=== PATIENT | female | born 1995 | race Caucasian/White ===

== ENCOUNTER 2018-06-08 22:56 | Emergency (ER) | payer OTHER, SELFPAY ==
--- NOTE | 2018-06-08 23:00 | DI.RAD.S_ITS ---
PROCEDURE: XR ANKLE LT MIN 3V INDICATIONS: 23 year-old woman with left ankle pain. TECHNIQUE: 3 views of the ankle were acquired. COMPARISON: None. FINDINGS: Bones: No fractures or dislocations. Ankle mortise is normally aligned. No suspicious bony lesions. Soft tissues: No tibiotalar joint effusion. Achilles tendon appears normal. Soft tissue swelling over the lateral malleolus. IMPRESSION: No fracture or dislocation. Dictated by: Hoda Shay M.D. on 06/09/2018 at 8:31 Approved by: Hoda Shay M.D. on 06/09/2018 at 8:33
[2018-06-08 23:03] VITALS: BP 134/81; PULSE 118; RESP 16; TEMP 37; O2SAT 100
--- NOTE | 2018-06-08 23:27 | ED_ITS ---
HPI - Extremity Injury (Lower) General Chief Complaint: Extremity Injury, Lower Stated Complaint: LEFT ANKLE INJURY Time Seen by Provider: 06/08/18 23:18 Source: patient Mode of arrival: wheelchair History of Present Illness HPI Narrative: This is a 23-year-old female comes to the emergency department with complaint of left ankle pain. Patient states yesterday she got out of the car, she was disoriented because she had been sleeping in the car and thought she had planted her foot firmly but rolled it. Her description she inverted the ankle. She states that she has continued to have pain for the last 24 hr and has pain with weight-bearing. She has had swelling, no bruising. No numbness or tingling of the extremity. She has had surgery on her right foot but has not had any prior issues or surgeries on the left. MD complaint: ankle injury Onset (ago): day(s) (1) Injury: Left: ankle Type of Injury: inversion Place: other (Getting out of car) Severity: severe Relieving factors: nothing (Tylenol) Exacerbating factors: weight bearing and movement Associated symptoms: swelling and unable to bear weight Related Data Home Medications Medication Instructions Recorded Confirmed alprazolam 1 mg PO #0 08/08/17 escitalopram oxalate [Lexapro] 10 mg PO QDAY #0 08/08/17 levothyroxine #0 08/08/17 propranolol 25 mg PO QDAY #0 08/08/17 Previous Rx's Medication Instructions Recorded tramadol 50 mg PO Q6H #5 tab 06/08/18 Allergies Allergy/AdvReac Type Severity Reaction Status Date / Time buspirone [BUSPIRONE] Allergy Unknown Verified 06/08/18 23:41 ibuprofen [IBUPROFEN] Allergy Unknown Verified 06/08/18 23:41 Review of Systems Review of Systems All systems reviewed & are unremarkable except as noted in HPI and below Musculoskeletal Reports as per HPI, Denies deformity, Reports joint swelling (Left ankle), Reports limited range of motion, Denies muscle weakness, Denies numbness, Denies tingling and Reports other (Left ankle pain) Integumentary/Breasts Denies rash and Denies unusual bruising Neurologic Denies numbness and Denies tingling [facility] Surgical History Status post right foot surgery (Acute) Exam Initial Vital Signs Initial Vital Signs: Vital Signs Temperature 98.6 F 06/08/18 23:03 Pulse Rate 118 H 06/08/18 23:03 Respiratory Rate 16 06/08/18 23:03 Blood Pressure 134/81 06/08/18 23:03 Pulse Oximetry 100 06/08/18 23:03 Skin General: No ecchymosis and No erythema Extrem Right lower extremity: normal to inspection, full ROM and normal capillary refill Left lower extremity: edema (Mild) and ankle Details: abnormal to inspection ( Mild swelling), tenderness (Tenderness with palpation over the lateral malleolus ), swelling and abnormal ROM (Decreased flexion extension) Details: pain with active ROM; edema; no cyanosis Course Orders Ordered: ED Orders 06/08/18 23:00 XR ankle LT min 3V Stat Discontinued Medications Tramadol HCl (Ultram 50mg Prepack) 1 bottle MIS SEEINSTR ONE Stop: 06/08/18 23:33 Last Admin: 06/08/18 23:42 Dose: 1 bottle Vital Signs - 8 hr 06/08/18 23:03 Temperature 98.6 F Pulse Rate 118 H Respiratory Rate 16 Blood Pressure 134/81 Pulse Oximetry [address] [facility] - Extremity Injury (Lower) Imaging Data Ankle x-ray: Attestation: I personally reviewed and interpreted this imaging study as follows: My impression: Left ankle shows no acute fracture. [facility] Narrative Medical decision making narrative: Patient treated ankle sprain, x-ray shows no acute fracture. Patient has tenderness over the lateral malleolus and pain with weight-bearing. Patient was given compression bandage here in the emergency department and wrapped. She was given crutches with teaching for nonweightbearing. Given a prescription short turn for tramadol and encouraged to take Tylenol with or instead of. Patient cannot take NSAIDs secondary to what she describes as anaphylaxis. We did discuss that she is continuing to have symptoms at 10-14 days she will need repeat imaging in re-evaluation. Discharge Plan Departure Patient Disposition: Home Clinical Impression: Left ankle sprain Discharge Date/Time: 06/08/18 23:48 Interventions: ED Discharge Assessment Last Done: 06/08/18 23:47 Instructions: Ankle Sprain Activity Restrictions/Additional Instructions: Follow-up with primary care in the next 10-14 days if your symptoms are not resolving. Continue to use ice as tolerated, rest and elevate your lower extremity as much as a you're able. You may weightbear as tolerated. Take pain medications as prescribed, these medications can make you sleepy do not drive, perform hazards activities or make any major decisions while taking them. You may take tylenol 1000mg every 8 hours as needed. You may take along with tramadol as needed. Prescriptions: New tramadol 50 mg tablet 50 mg PO Q6H Qty: 5 RF: 0 No Action levothyroxine 50 MCG tablet Qty: 0 RF: 0 propranolol 20 MG tablet 25 mg PO QDAY Qty: 0 RF: 0 escitalopram oxalate [Lexapro] 10 MG tablet 10 mg PO QDAY Qty: 0 RF: 0 alprazolam 1 MG tablet extended release 24 hr 1 mg PO Qty: 0 RF: 0
[2018-06-08] MEDS: TRAMADOL 50 MG PREPACK 1 BOTTLE MISC (23:42)
== END 2018-06-08 23:48 | disposition home or self-care (01) ==
PROVIDERS: Emergency Provider Emergency Medicine
DX: S93.402A Sprain of unspecified ligament of left ankle, initial encounter (principal); W18.43XA Slipping, tripping and stumbling without falling due to stepping from one level to another, initial encounter
CPT/HCPCS: 73610; 99282; 99283

== ENCOUNTER 2019-02-03 22:57 | Emergency (ER) | payer OTHER, SELFPAY ==
[2019-02-03 23:02] VITALS: PULSE 133; RESP 18; TEMP 36.6; O2SAT 95; BMI 28.1
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
--- NOTE | 2019-02-03 23:48 | DI.CT.S_ITS ---
PROCEDURE: CT ABDOMEN PELVIS W CON INDICATIONS: severe lower abdominal pain and back pain TECHNIQUE: After the administration of intravenous contrast, 5 mm thick sections acquired from the diaphragm to the symphysis. 5 mm coronal and sagittal reformats were acquired. For radiation dose reduction, the following was used: automated exposure control, adjustment of mA and/or kV according to patient size. COMPARISON: [facility], CT, ABDOMEN/PELVIS WITH CONTRAST, 08/08/2017, 19:14. FINDINGS: Image quality: Excellent. ABDOMEN: Lung bases: Mild scattered atelectasis, which is incompletely visualized. If felt clinically necessary, a dedicated PA and lateral chest radiographs could be obtained Solid organs: Diffuse fatty infiltration of the liver. Gallbladder negative. Biliary system is non dilated. Pancreas enhances normally. Spleen is normal in size and enhancement. No adrenal nodules. Kidneys demonstrate normal size and enhancement, without hydronephrosis. Peritoneum and bowel: Bowel loops demonstrate normal wall thickness and caliber. No free fluid or air. The appendix is within normal limits Nodes and vessels: No retroperitoneal or mesenteric adenopathy by size criteria. Aorta and inferior vena cava are normal in size. Miscellaneous: No ventral hernias. PELVIS: Genitourinary: Bladder wall thickness is normal. Miscellaneous: No inguinal hernias or adenopathy. Bones: No suspicious bony lesions. No vertebral body compression fractures. IMPRESSION: Mild scattered atelectasis as above Hepatic steatosis. No acute intra-abdominal or intrapelvic process. Normal appendix. Dictated by: Kiel Allen M.D. on 02/04/2019 at 8:02 Approved by: Kiel Allen M.D. on 02/04/2019 at 8:06
[2019-02-03 23:51] VITALS: BP 124/64; PULSE 108; RESP 16
[2019-02-03 23:55] LABS: Urine Amphetamines Negative (Negative); Urine Barbiturates Negative (Negative); Urine Benzodiazepines Negative (Negative); Urine Cocaine Negative (Negative); Urine MDMA Negative (Negative); Urine Methadone Negative (Negative); Urine Methamphetamines Negative (Negative); Urine Morphine/Opi cutoff 2000 Negative (Negative); Urine Oxycodone Negative (Negative); Urine Phencyclidine Negative (Negative); Urine Tetrahydrocannabinol Negative (Negative); Urine Tricyclic Antidepressant Negative (Negative)
[2019-02-04 00:34] LABS: Lactate (Lactic Acid) 1.7 mmol/L (0.7-2.1); Lipase 91 U/L (23-300)
[2019-02-04 00:35] LABS: Alanine Aminotransferase 83 IU/L (9-52); Albumin 4.7 g/dL (3.5-5.0); Albumin Globulin Ratio 1.5 (1.0-2.8); Alkaline Phosphatase 45 U/L (38-126); Aspartate Aminotransferase 57 IU/L (14-36); BUN Creatinine Ratio 11.3 (6-22); Bilirubin Total 0.2 mg/dL (0.2-1.3); Blood Urea Nitrogen 9 mg/dL (7-17); Calcium 9.5 mg/dL (8.4-10.2); Carbon Dioxide 25 mmol/L (22-32); Chloride 108 mmol/L (98-107); Estimated Glomerular Filt Rate > 60.0 mL/min (>60); Globulin 3.1 g/dL (1.7-4.1); Glucose 97 mg/dL (70-100); HEMOLYSIS < 15 (0-50); Potassium 3.9 mmol/L (3.4-5.1); Sodium 147 mmol/L (137-145); Total Protein 7.8 g/dL (6.3-8.2)
[2019-02-04 00:48] LABS: Add Manual Diff / Slide Review NO; Basophils Absolute Auto 0 /uL (0-100); Basophils Percent Auto 0.2 % (0-2); Eosinophils Absolute Auto 100 /uL (0-450); Eosinophils Percent Auto 1.1 % (2-4); Hematocrit 42.2 % (36-46); Hemoglobin 14.3 g/dL (12.0-16.0); Lymphocytes Absolute Auto 2000 /uL (1100-4500); Lymphocytes Percent Auto 29.3 % (25-40); Mean Corpuscular HGB Conc 33.8 % (30-36); Mean Corpuscular Hemoglobin 32.2 PG (26-34); Mean Corpuscular Volume 95.4 fL (80-100); Monocytes Absolute Auto 500 /uL (0-900); Monocytes Percent Auto 6.8 % (3-14); Neutrophils Absolute Auto 4200 /uL (1500-7000); Neutrophils Percent Auto 62.6 % (50-75); Platelet Count 273 X10^3/uL (150-400); Red Blood Cell Count 4.42 X10^6/uL (4.0-5.2); Red Cell Distribution Width 13.4 % (11.6-14.8); White Blood Cell Count 6.7 X10^3/uL (4.5-11.0)
[2019-02-04 01:01] LABS: Procalcitonin < 0.05 ng/mL (<0.5)
[2019-02-04] MEDS: HYDROMORPHONE 1 MG INJ 0.5 MG IV (01:03)
[2019-02-04] MEDS: SODIUM CHLORIDE 0.9% 1,000 ML 1000 ML IV (01:04)
[2019-02-04] MEDS: LORazepam 2 MG/ML SYRINGE 1 MG IV (01:30)
[2019-02-04 02:28] VITALS: PULSE 105; O2SAT 96
[2019-02-04 02:35] VITALS: BP 121/60; PULSE 88; RESP 16; O2SAT 100
--- NOTE | 2019-02-16 23:28 | PC.NURSE ---
Late Entry IV Stop time 0204, pt received 1000ml bolus of NS IV stopped at 0204 on 02/04/19.
== END 2019-02-04 02:35 | disposition home or self-care (01) ==
PROVIDERS: Emergency Provider Emergency Medicine
DX: F41.9 Anxiety disorder, unspecified (principal); R10.30 Lower abdominal pain, unspecified
CPT/HCPCS: 36591; 74177; 80053; 80305; 81003; 81025; 83605; 83690; 84145; 85025; 87040; 96361; 96374; 96375; 99282; 99284; J1170; J2060; Q9967